=== PATIENT | male | born 1975 | race Caucasian/White ===

== ENCOUNTER 2020-03-15 07:49 | Emergency (ER) | payer MEDICAID ==
[~2020-03-15] VITALS: Ht 170.2 cm; Wt 72.6 kg
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
--- NOTE | 2020-03-15 08:20 | NUR ---
ED Nurse Note: Pt brought in by ambulance from [place] for behavioral complaint. Pt denies SI or HI. Pt is alert and orientedx2, is paranoid, and is restless. Pt has been seen by MD. Pt is sitting on floor and playing with clothes and paper towels.
[2020-03-15 08:30] VITALS: BP 142/99
[2020-03-15] MEDS ORDERED: Haloperidol 5mg/ml Inj IM ONE (09:00)
[2020-03-15] MEDS ORDERED: DiphenhydrAMINE 50mg/ml Inj IM ONE (09:00)
[2020-03-15] MEDS ORDERED: LORazepam Inj 2mg/ml 1ml IM ONE (09:00)
--- NOTE | 2020-03-15 10:13 | NUR ---
ED Nurse Note: Pt is sleeping in bed post administration of haldol, ativ, bendaryl.
[2020-03-15 12:20] VITALS: BP 138/98
--- NOTE | 2020-03-15 12:27 | NUR ---
ED Nurse Note: Pt responds to sternal rub, but drowsy. Pt is snoring in bed.
--- NOTE | 2020-03-15 14:21 | NUR ---
ER DISCHARGE NOTE: Patient is cleared to be discharged per ERMD, pt is aox4, on room air, with stable vital signs. Pt given d/c instructions. Pt given resources, food, clothes provied. Pt is now awake and cooperative, a&ox4. Pt has no prescriptions. Homeless log and mini cog completed.
[2020-03-15 14:23] VITALS: BP 132/87
== END 2020-03-15 14:25 | disposition home or self-care (01) ==
LOC: EDBD 07:49 → EMR 07:58
DX: F91.9 Conduct disorder, unspecified (principal); F17.200 Nicotine dependence, unspecified, uncomplicated
CPT/HCPCS: 96372; J1200; J1630; Z7502; 99283